=== PATIENT | male | born 1980 | race Caucasian/White ===

== ENCOUNTER 2023-07-31 14:28 | Emergency (ER) | payer OTHER ==
[~2023-07-31] VITALS: Ht 165.1 cm; Wt 83.8 kg
[2023-07-31] MEDS ORDERED: ALBU2TAB13 PO (14:35)
[2023-07-31] MEDS ORDERED: BENZ200C70 PO (14:35)
[2023-07-31] MEDS ORDERED: MUCI1TAB18 PO (14:35)
[2023-07-31 16:45] LABS: BASO # 0.1 10^3/uL (0.0-0.2); BASO % 0.7 % (0.0-1.0); EOS % 9.2 % (0.0-3.0); HEMOGLOBIN 16.9 g/dl (13.5-17.5); LYMPH # 3.2 10^3/uL (1.5-5.0); MEAN CORPUSCULAR HEMOGLOBIN 28.6 pg (27.0-33.0); MEAN CORPUSCULAR HGB CONC 33.8 g/dl (32.0-36.5); MEAN CORPUSCULAR VOLUME 84.7 fl (80.0-96.0); MONO % 9.5 % (2.0-8.0); NEUTROPHILS # 5.4 10^3/uL (1.5-8.5); NEUTROPHILS % 50.4 % (36.0-66.0); PLATELET COUNT, AUTOMATED 385 10^3/uL (150-450); WHITE BLOOD COUNT 10.8 10^3/uL (4.0-10.0)
[2023-07-31] MEDS ORDERED: NS 1,000 ML IV ONE (16:50)
[2023-07-31] MEDS ORDERED: IPRATROPIUM 0.5MG/ALBUTEROL 2.5MG INH SOL UD 3ML (DUONEB) NEB ONE (16:50)
[2023-07-31 17:26] LABS: RSV AMPLIFICATION NEGATIVE (NEGATIVE)
[2023-07-31] MEDS ORDERED: ISOVUE-370 76% 100ML VIAL As Ordered ONE (17:29)
[2023-07-31 17:32] LABS: INR 1.12
[2023-07-31] MEDS ORDERED: methylPREDNISolone 125MG 2ML VIAL IV ONE (18:30)
[2023-07-31] MEDS ORDERED: AZITHROMYCIN 250MG TABLET PO ONE (18:30)
[2023-07-31] MEDS ORDERED: cefTRIAXone SOD 1 GM in D5W MINI-BAG PLUS 50 ML IV ONE (18:30)
[2023-07-31 18:33] LABS: ALBUMIN 4.2 G/DL (3.2-5.2); ALKALINE PHOSPHATASE 94 U/L (46-116); ALT/SGPT 36 U/L (7.0-40); AST/SGOT 21 U/L (<34); BILIRUBIN,DIRECT 0.2 MG/DL (<0.4); BILIRUBIN,TOTAL 0.5 MG/DL (0.3-1.2); CK-MB VALUE MASS < 1.0 NG/ML (<3.6); MAGNESIUM LEVEL 1.8 MG/DL (1.8-2.4); TOTAL PROTEIN 7.6 G/DL (5.7-8.2)
[2023-07-31 18:35] LABS: CPK CREATINE PHOSPHOKINASE 157 U/L (46-171); MB/CK RELATIVE INDEX 0.63 (< OR =4)
[2023-07-31 19:40] VITALS: O2SAT 95
[2023-07-31] MEDS ORDERED: DOXY-443 PO (20:14)
[2023-07-31] MEDS ORDERED: PRED20TA PO (20:14)
[2023-07-31 20:22] VITALS: BP 140/87; TEMP 97.3; O2SAT 100
== END 2023-07-31 20:38 | disposition home or self-care (01) ==
LOC: M ED 14:28
DX: U07.1 COVID-19 (principal); J18.9 Pneumonia, unspecified organism; M54.9 Dorsalgia, unspecified; R91.8 Other nonspecific abnormal finding of lung field; Z79.899 Other long term (current) drug therapy; Z79.51 Long term (current) use of inhaled steroids
CPT/HCPCS: 71046; 71275; 80047; 80076; 82550; 82553; 83605; 83735; 83880; 84484; 85025; 85610; 87040; 87631; 93005; 93041; 94640; 94760; 96361; 96365; 96375; 99285; J0696; J2930; Q9967

== ENCOUNTER 2023-11-05 13:15 | Emergency (ER) | payer OTHER ==
[~2023-11-05] VITALS: Ht 167.6 cm; Wt 81.9 kg
[~2023-11-05 13:15] MED LIST: ALBU2TAB13 PO; BENZ200C70 PO; DOXY-443 PO; MUCI1TAB18 PO; PRED20TA PO
[2023-11-05] MEDS ORDERED: METR-369 PO (13:23)
[2023-11-05] MEDS ORDERED: DOXY-444 PO (13:23)
[2023-11-05] MEDS ORDERED: [UNRECOGNIZED DRUG - CODE] PO (13:23)
[2023-11-05] MEDS ORDERED: PANT40TA29 PO (13:23)
[2023-11-05] MEDS: predniSONE 20 MG TAB PO ONE (15:08)
[2023-11-05] MEDS: IPRATROPIUM 0.5MG/ALBUTEROL 2.5MG INH SOL UD 3ML (DUONEB) NEB PRN (15:16)
[2023-11-05 15:26] LABS: BASO # 0.1 10^3/uL (0.0-0.2); BASO % 1.1 % (0.0-1.0); EOS # 0.8 10^3/uL (0.0-0.5); EOS % 9.3 % (0.0-3.0); HEMATOCRIT 49.5 % (42.0-52.0); HEMOGLOBIN 16.7 g/dl (13.5-17.5); LYMPH # 2.2 10^3/uL (1.5-5.0); LYMPH % 26.2 % (24.0-44.0); MEAN CORPUSCULAR HEMOGLOBIN 28.8 pg (27.0-33.0); MEAN CORPUSCULAR HGB CONC 33.7 g/dl (32.0-36.5); MEAN CORPUSCULAR VOLUME 85.5 fl (80.0-96.0); MONO # 0.9 10^3/uL (0.0-0.8); MONO % 10.4 % (2.0-8.0); NEUTROPHILS # 4.5 10^3/uL (1.5-8.5); NEUTROPHILS % 52.8 % (36.0-66.0); PLATELET COUNT, AUTOMATED 349 10^3/uL (150-450); RED BLOOD COUNT 5.79 10^6/uL (4.30-6.10); WHITE BLOOD COUNT 8.5 10^3/uL (4.0-10.0)
[2023-11-05 16:00] LABS: BLOOD UREA NITROGEN 19 MG/DL (9-23); CARBON DIOXIDE LEVEL 30 MMOL/L (20-31); CHLORIDE LEVEL 105 MMOL/L (98-107); CREATININE FOR GFR 1.15 MG/DL (0.70-1.30); GLOMERULAR FILTRATION RATE > 60.0 (>60); GLUCOSE, FASTING 86 MG/DL (60-100); POTASSIUM SERUM 5.1 MMOL/L (3.5-5.1); SODIUM LEVEL 140 MMOL/L (136-145)
[2023-11-05 16:03] LABS: THYROID STIMULATING HORMONE 2.849 uIU/ML (0.55-4.78)
[2023-11-05] MEDS: MAG SULF 1GM/100ML (MAG RUN) 1 GM in IV 1 EA IV SCH (16:32)
[2023-11-05] MEDS ORDERED: PRED20TA PO (17:58)
[2023-11-05] MEDS ORDERED: PROA1AER2 INH (17:58)
[2023-11-05 18:00] VITALS: BP 133/91; TEMP 97.5; O2SAT 95
[2023-11-06] MEDS ORDERED: MUCI1TAB18 PO (11:38)
[2023-11-06] MEDS ORDERED: PRED20TA PO (11:38)
[2023-11-06] MEDS ORDERED: PROA1AER2 INH (11:38)
== END 2023-11-05 18:15 | disposition home or self-care (01) ==
LOC: M ED 13:15
DX: J20.9 Acute bronchitis, unspecified (principal)
CPT/HCPCS: 71046; 71250; 80048; 83880; 84443; 85025; 87486; 87581; 87633; 87798; 94640; 94760; 96365; 99284; J3475; J7512

== ENCOUNTER 2024-02-04 10:00 | Observation (INO) | payer OTHER ==
[~2024-02-04] VITALS: Ht 165.1 cm; Wt 83.8 kg
[~2024-02-04 10:00] MED LIST changes: +DOXY-323 PO; +DOXY-440 PO; -DOXY-443 PO; +METR-369 PO; +PANT40TA29 PO; +PROA1AER2 INH; +[UNRECOGNIZED DRUG - CODE] PO
[2024-02-04] MEDS: IPRATROPIUM 0.5MG/ALBUTEROL 2.5MG INH SOL UD 3ML (DUONEB) NEB ONE (11:48)
[2024-02-04] MEDS: NS 1,000 ML IV ONE (11:56)
[2024-02-04] MEDS: methylPREDNISolone 125MG 2ML VIAL IV ONE (11:56)
[2024-02-04 12:16] LABS: BASO # 0.1 10^3/uL (0.0-0.2); BASO % 0.8 % (0.0-1.0); EOS # 1.2 10^3/uL (0.0-0.5); EOS % 11.5 % (0.0-3.0); HEMATOCRIT 49.4 % (42.0-52.0); HEMOGLOBIN 16.8 g/dl (13.5-17.5); LYMPH # 2.3 10^3/uL (1.5-5.0); MEAN CORPUSCULAR HEMOGLOBIN 28.9 pg (27.0-33.0); MEAN CORPUSCULAR VOLUME 84.9 fl (80.0-96.0); MONO # 0.9 10^3/uL (0.0-0.8); MONO % 8.7 % (2.0-8.0); NEUTROPHILS # 5.7 10^3/uL (1.5-8.5); NEUTROPHILS % 55.8 % (36.0-66.0); PLATELET COUNT, AUTOMATED 337 10^3/uL (150-450); RED BLOOD COUNT 5.82 10^6/uL (4.30-6.10); WHITE BLOOD COUNT 10.1 10^3/uL (4.0-10.0)
[2024-02-04 12:39] LABS: D-DIMER QUANT 0.37 ug/mL (<0.5); INR 1.07; PROTHROMBIN TIME 13.6 SECONDS (12.5-14.5)
[2024-02-04 12:45] LABS: CK-MB VALUE MASS 1.9 NG/ML (<3.6)
[2024-02-04 12:47] LABS: ALBUMIN 3.9 G/DL (3.2-5.2); ALKALINE PHOSPHATASE 101 U/L (46-116); ALT/SGPT 43 U/L (7.0-40); AST/SGOT 19 U/L (<34); BILIRUBIN,DIRECT 0.2 MG/DL (<0.4); BILIRUBIN,TOTAL 0.7 MG/DL (0.3-1.2); BLOOD UREA NITROGEN 16 MG/DL (9-23); CALCIUM LEVEL 9.6 MG/DL (8.5-10.1); CARBON DIOXIDE LEVEL 30 MMOL/L (20-31); CHLORIDE LEVEL 105 MMOL/L (98-107); GLOMERULAR FILTRATION RATE > 60.0 (>60); GLUCOSE, FASTING 78 MG/DL (60-100); MAGNESIUM LEVEL 1.8 MG/DL (1.8-2.4); POTASSIUM SERUM 4.4 MMOL/L (3.5-5.1); SODIUM LEVEL 140 MMOL/L (136-145); TOTAL PROTEIN 7.2 G/DL (5.7-8.2)
[2024-02-04 12:49] LABS: THYROID STIMULATING HORMONE 2.377 uIU/ML (0.55-4.78); THYROXINE (T4) 7.9 UG/DL (4.5-10.9)
[2024-02-04 12:53] LABS: CPK CREATINE PHOSPHOKINASE 202 U/L (46-171); MB/CK RELATIVE INDEX 0.94 (< OR =4)
[2024-02-04] MEDS ORDERED: ISOVUE-370 76% 100ML VIAL As Ordered ONE (13:06)
[2024-02-04 13:36] LABS: CK-MB VALUE MASS 1.5 NG/ML (<3.6)
[2024-02-04 13:43] LABS: MB/CK RELATIVE INDEX 0.84 (< OR =4)
[2024-02-04] MEDS ORDERED: VENTAER INH (14:43)
[2024-02-04] MEDS ORDERED: SILD50TA2 PO (14:43)
[2024-02-04] MEDS ORDERED: MUCU1TAB PO (14:43)
[2024-02-04] MEDS ORDERED: ACET1TAB55 PO (14:43)
[2024-02-04] MEDS ORDERED: HOME MED LIST COMPLETE! XX SCH (15:00)
[2024-02-04 18:09] LABS: PROCALCITONIN 0.04 ng/ml
[2024-02-04] MEDS: IPRATROPIUM 0.5MG/ALBUTEROL 2.5MG INH SOL UD 3ML (DUONEB) NEB SCH (19:48)
[2024-02-05] MEDS ORDERED: fentaNYL 100 MCG/2 ML INJECTION As Ordered ONE (09:57)
[2024-02-05] MEDS ORDERED: MIDAZOLAM INJ 2MG/2ML VIAL As Ordered ONE (09:57)
[2024-02-05] MEDS ORDERED: LIDOCAINE 2% 100MG/5ML SDV (FOR ANES.) As Ordered ONE (09:58)
[2024-02-05] MEDS ORDERED: SUGAMMADEX SODIUM 500 MG/5 ML VIAL (BRIDION) As Ordered ONE (09:58)
[2024-02-05] MEDS ORDERED: ROCURONIUM BROMIDE 50MG/5ML VIAL As Ordered ONE (09:58)
[2024-02-05] MEDS ORDERED: propofoL 200 MG/20 ML VIAL As Ordered ONE (09:58)
[2024-02-05] MEDS ORDERED: ONDANSETRON 4MG 2ML VIAL As Ordered ONE (09:58)
[2024-02-05] MEDS ORDERED: CETACAINE SPRAY 5GM As Ordered ONE (10:09)
[2024-02-05 10:42] VITALS: BP 137/88; TEMP 97.3; O2SAT 95
[2024-02-05 12:00] VITALS: BP 110/54; TEMP 97.3; O2SAT 97
[2024-02-05] MEDS ORDERED: PHENYLephrine 500MCG 5ML (100MCG/ML) SYRINGE As Ordered ONE (12:48)
[2024-02-05] MEDS ORDERED: MORPHINE 2 MG/ML 1ML VIAL IV PRN (13:45)
[2024-02-05] MEDS ORDERED: fentaNYL 100 MCG/2 ML INJECTION IV PRN (13:45)
[2024-02-05] MEDS ORDERED: oxyCODONE 5MG TAB PO PRN (13:45)
[2024-02-05] MEDS ORDERED: ONDANSETRON 4MG 2ML VIAL IV PRN (13:45)
[2024-02-05 14:40] VITALS: BP 118/83; TEMP 97; O2SAT 94
[2024-02-05 15:10] VITALS: BP 124/84; TEMP 97.2; O2SAT 91
[2024-02-05 15:40] VITALS: BP 123/83; TEMP 97.5; O2SAT 98
[2024-02-05 16:52] VITALS: BP 138/72; TEMP 97.3; O2SAT 96
== END 2024-02-05 17:41 | disposition home or self-care (01) ==
LOC: M ED 10:00 → M ED INP 17:16 → M MSPAV 02-05 10:40
PROVIDERS: ADMIT Internal Medicine; ATTEND Internal Medicine
DX: R59.0 Localized enlarged lymph nodes (principal); R06.02 Shortness of breath; D72.829 Elevated white blood cell count, unspecified; Z79.51 Long term (current) use of inhaled steroids; Z79.899 Other long term (current) drug therapy; Z86.16 Personal history of COVID-19
CPT/HCPCS: 31622; 31653; 71045; 71046; 71275; 74177; 80048; 80076; 82550; 82553; 83605; 83735; 83880; 84145; 84436; 84443; 84484; 85025; 85379; 85610; 87040; 87070; 87486; 87581; 87633; 87798; 88104; 88305; 93005; 93306; 94640; 96374; 99284; J1100; J2250; J2371; J2405; J2919; J3010; Q9967

== ENCOUNTER → 2024-02-15 | Outpatient (CLI) | payer OTHER ==
[~2024-02-15] MED LIST changes: +ACET1TAB55 PO; +MUCU1TAB PO; +SILD50TA2 PO; +VENTAER INH
[2024-02-15 13:17] LABS: BASO # 0.1 10^3/uL (0.0-0.2); BASO % 0.9 % (0.0-1.0); EOS # 0.8 10^3/uL (0.0-0.5); EOS % 10.4 % (0.0-3.0); HEMATOCRIT 49.5 % (42.0-52.0); HEMOGLOBIN 16.6 g/dl (13.5-17.5); LYMPH # 1.8 10^3/uL (1.5-5.0); LYMPH % 23.5 % (24.0-44.0); MEAN CORPUSCULAR HEMOGLOBIN 28.6 pg (27.0-33.0); MEAN CORPUSCULAR HGB CONC 33.5 g/dl (32.0-36.5); MEAN CORPUSCULAR VOLUME 85.3 fl (80.0-96.0); MONO # 0.8 10^3/uL (0.0-0.8); MONO % 10.8 % (2.0-8.0); NEUTROPHILS # 4.1 10^3/uL (1.5-8.5); NEUTROPHILS % 54.1 % (36.0-66.0); PLATELET COUNT, AUTOMATED 355 10^3/uL (150-450); WHITE BLOOD COUNT 7.6 10^3/uL (4.0-10.0)
[2024-02-16 15:22] LABS: BERMUDA GRASS IGE 0.82 kU/L (<0.10); D001 IGE D PTERONYSSINUS 6.39 kU/L (<0.10); D002-IGE D FARINAE 5.42 kU/L (<0.10); E001-IGE CAT DANDER < 0.10 kU/L (<0.10); E005-IGE DOG DANDER < 0.10 kU/L (<0.10); ELM IGE 1.73 kU/L (<0.10); IMMUNOGLOBULIN E FOR ALLERGENS 708 kU/L (<OR=114); M002 IGE CLADOSPORIUM HERBARU < 0.10 kU/L (<0.10); M003 IGE ASPERGILLUS FUMIGATU 0.12 kU/L (<0.10); M006 IGE ALTERNIA ALTERNATA < 0.10 kU/L (<0.10); M1-PENICILLIUM NOTATUM 4.51 kU/L (<0.10); MOUSE URINE IGE < 0.10 kU/L (<0.10); MUGWORT IGE 1.14 kU/L (<0.10); OAK IGE 0.35 kU/L (<0.10); ROUGH PIGWEED IGE 0.45 kU/L (<0.10); SHEEP SORREL IGE 0.72 kU/L (<0.10); SYCAMORE IGE 0.76 kU/L (<0.10); T001-IGE MAPLE BOX ELDER 0.58 kU/L (<0.10); T006-IGE MOUNTAIN CEDAR 7.86 kU/L (<0.10); T014 COTTONWOOD IGE 0.53 kU/L (<0.10); TIMOTHY GRASS IGE 0.36 kU/L (<0.10); WALNUT TREE IGE 0.42 kU/L (<0.10); WHITE ASH IGE 0.61 kU/L (<0.10); WHITE MULBERRY IGE 0.16 kU/L (<0.10)
[2024-02-16 16:17] LABS: ANGIOTENSIN 1 CONVERTING ENZYM 35 U/L (9-67)
== END ==
LOC: M LAB 12:04
PROVIDERS: ATTEND Internal Medicine Pulmonary Disease
DX: R91.8 Other nonspecific abnormal finding of lung field (principal)

== ENCOUNTER → 2024-10-14 | Outpatient (REF) ==
[~2024-10-14] MED LIST changes: -DOXY-323 PO; +DOXY-441 PO
== END ==
LOC: M PLAIMG 13:51
PROVIDERS: ATTEND Internal Medicine
DX: M25.542 Pain in joints of left hand (principal)